=== PATIENT | female | born 1965 | race Caucasian/White ===

== ENCOUNTER 2019-11-21 16:44 | Emergency (ER) | payer BC, SELFPAY ==
[2019-11-21 16:52] VITALS: BP 144/86; PULSE 111; RESP 15; TEMP 36.8; O2SAT 100
[2019-11-21 17:00] VITALS: BP 137/66; PULSE 111; RESP 18; O2SAT 99
[2019-11-21 17:10] VITALS: BP 137/66; PULSE 104; RESP 30; O2SAT 100
[2019-11-21] MEDS: methylPREDNISolone SOD SUCC 125 MG VIAL IV PUSH (17:56)
[2019-11-21] MEDS: diphenhydrAMINE HCl INJ 50 MG/ML VIAL IV PUSH (17:57)
[2019-11-21] MEDS: FAMOTIDINE 20 MG/2 ML VIAL IV PUSH (17:58)
[2019-11-21 18:00] VITALS: BP 90/55; PULSE 103; RESP 21; O2SAT 100
--- NOTE | 2019-11-21 18:05 | PC.NURSE ---
Medications given as ordered. Pt speaking in full sentences, without tachypnea or shortness of breath noted. Pt begins screaming out after NS flush with 2nd medication. states she should be checked for a fluid overload from the saline! . Explained to both the patient and her visitor that I have given her approx 4cc of NS flush at present. No redness, warmth, or swelling noted to IV site. Medications flush without difficulty and give patient relief, then pt again screams out when NS flush given. Cool washcloth given to site. DAX Franco, made aware.
[2019-11-21 19:00] VITALS: BP 121/58; PULSE 102; RESP 23; O2SAT 98
--- NOTE | 2019-11-21 19:09 | ED.ALLEREA ---
HPI - Allergic Reaction General Chief complaint: Allergic Reaction Stated complaint: allergic reaction Time Seen by Provider: 11/21/19 17:36 Source: patient Mode of arrival: ambulatory Limitations: no limitations History of Present Illness HPI narrative: Patient presents for treatment of generalized itching and sensation of hives. 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 Patient states it happens to her because she was outside today. She is very sensitive. She reports improvement in past with antihistamine and steroid. Patient denies any fevers, chills, nausea, vomiting, diarrhea shortness of breath or chest pain. Patient is currently able to breathe and swallow without issues. Related Data Home Medications Medication Instructions Recorded Confirmed albuterol sulfate INHALATION 11/21/19 [id number]-[id number] 1 tablet PO Q4-6H PRN 11/21/19 [Excedrin Extra Strength] bupropion HCl PO 11/21/19 cromolyn 11/21/19 duloxetine mg PO 11/21/19 epinephrine [EpiPen] 0.3 mg IM Q5-15M PRN 11/21/19 fexofenadine 180 mg PO DAILY 11/21/19 loratadine [Claritin] 10 mg PO QID 11/21/19 mometasone [Nasonex] 2 spray INTRANASAL DAILY PRN 11/21/19 pitolisant [Wakix] mg 11/21/19 topiramate [Trokendi XR] PO 11/21/19 trazodone 11/21/19 Allergies Allergy/AdvReac Type Severity Reaction Status Date / Time chromium Allergy Rash Verified 11/21/19 17:02 magnesium sulfate Allergy Anaphylaxis Verified 11/21/19 17:02 nickel Allergy Rash Verified 11/21/19 17:02 codeine AdvReac Vomiting Verified 11/21/19 17:02 hydrocodone AdvReac Vomiting Verified 11/21/19 17:02 hydromorphone AdvReac Vomiting Verified 11/21/19 17:02 morphine AdvReac Vomiting Verified 11/21/19 17:02 sulfite AdvReac Swelling Verified 11/21/19 17:02 Review of Systems Review of Systems: Narrative: CONSTITUTIONAL: Denies fever, chills, or sweats. EYES: Denies visual changes, redness, or discharge. ENT: Denies rhinorrhea, congestion, sore throat, or otalgia. CARDIOVASCULAR: Denies chest pain, palpitations, or edema. RESPIRATORY: Denies cough or dyspnea. GASTROINTESTINAL: Denies abdominal pain, nausea, vomiting, or diarrhea. GENITOURINARY: Denies dysuria or hematuria. SKIN: Reports rash and itching. MUSCULOSKELETAL: Denies back pain, joint pain, or myalgia. . PMFSH Social History Social History Gender identity (if verbalized by the patient): Female Sexual Orientation (if Verbalized by the Patient): Straight or Heterosexual Exam Narrative: Exam Narrative: GENERAL: Well-appearing, well-nourished, and in no acute distress. HEAD: Normocephalic, atraumatic. EYES: PERRLA and EOMI. ENT: Nares clear, no rhinorrhea or epistaxis. Mucous membranes moist. Oropharynx without tonsillar hypertrophy exudate or other lesions. Bilateral TMs pearly julien nonbulging. No rash swelling or hives noted in parents oropharynx. Airway is patent. CHEST: Clear to auscultation. No respiratory distress. No wheezes rales or rhonchi HEART: Regular rate and rhythm. EXTREMITIES: Normal range of motion. No edema. SKIN: I am unable to appreciate any hives on the patient however she feels generalized pruritus and swelling, especially on her arms and legs. Warm, dry, no rash. NEURO: No focal deficits. Alert and oriented x3. PSYCH: Normal mood and affect. Course Vital Signs Vital signs: Vital Signs Temperature 98.3 F 11/21/19 16:52 Pulse Rate 111 H 11/21/19 16:52 Respiratory Rate 15 11/21/19 16:52 Blood Pressure 144/86 H 11/21/19 16:52 Pulse Oximetry 100 11/21/19 16:52 Temperature 98.3 F 11/21/19 16:52 Pulse Rate 104 H 11/21/19 17:10 Respiratory Rate 30 H 11/21/19 17:10 Blood Pressure 137/66 11/21/19 17:10 Pulse Oximetry 100 11/21/19 17:10 MDM - Allergic Reaction MDM Narrative Medical decision making narrative: Patient reports resolution in her symptoms and is requesting a snack. She states she feel
[2019-11-21 19:46] VITALS: BP 121/58; PULSE 95; RESP 22; O2SAT 98
== END 2019-11-21 19:48 | disposition home or self-care (01) ==
PROVIDERS: Emergency Provider Emergency Medicine
DX: T78.40XA Allergy, unspecified, initial encounter (principal)
CPT/HCPCS: 96374; 96375; 99284; J1200; J2930